=== PATIENT | male | born 1995 | race Caucasian/White ===

== ENCOUNTER → 2017-11-22 | Outpatient (CLI) | payer OTHER ==
--- NOTE | 2017-11-22 13:36 | Diagnostic Imaging Report ---
PROCEDURE: CT head without contrast. TECHNIQUE: Multiple contiguous axial images were obtained through the brain without the use of intravenous contrast. INDICATION: Head injury. Headache. Visual disturbances. COMPARISON: None. FINDINGS: No intracranial hemorrhage, mass effect, hydrocephalus, or extra-axial fluid collections. The osseous structures are intact. The visualized paranasal sinuses and mastoids are clear. IMPRESSION: Negative head CT. Dictated by: Dictated on workstation # [id number]
== END ==
LOC: RAD 12:24
PROVIDERS: ATTEND Nurse Practitioner Family
DX: S06.9X9A Unspecified intracranial injury with loss of consciousness of unspecified duration, initial encounter (principal); H53.9 Unspecified visual disturbance; R26.89 Other abnormalities of gait and mobility; R41.89 Other symptoms and signs involving cognitive functions and awareness
CPT/HCPCS: 70450